=== PATIENT | male | born 2000 | race Hispanic/Latino ===

== ENCOUNTER 2022-12-04 10:17 | Emergency (ER) | payer OTHER ==
[~2022-12-04] VITALS: Ht 165.1 cm; Wt 70.9 kg
[2022-12-04 13:18] VITALS: BP 150/77; TEMP 98.6; O2SAT 98
== END 2022-12-04 13:35 | disposition home or self-care (01) ==
LOC: EDBD 10:17 → M ED 10:17
DX: S89.91XA Unspecified injury of right lower leg, initial encounter (principal); W50.0XXA Accidental hit or strike by another person, initial encounter; Y93.66 Activity, soccer

== ENCOUNTER → 2023-02-03 | Outpatient (CLI) | payer OTHER ==
[~2023-02-03] MED LIST: PROHANCE 279.3MG/ML 15ML VIAL ONE
== END ==
LOC: M PLAIMG 12:18
PROVIDERS: ATTEND Plastic Surgery Surgery of the Hand
DX: Q18.2 Other branchial cleft malformations (principal)

== ENCOUNTER 2023-03-30 20:37 | Emergency (ER) | payer OTHER ==
[~2023-03-30] VITALS: Ht 165.1 cm; Wt 65.1 kg
[2023-03-30 21:41] LABS: BASO % 0.3 % (0.0-1.0); EOS # 0.2 10^3/uL (0.0-0.5); EOS % 2.1 % (0.0-3.0); HEMATOCRIT 45.3 % (42.0-52.0); HEMOGLOBIN 15.9 g/dl (13.5-17.5); LYMPH # 3.1 10^3/uL (1.5-5.0); LYMPH % 30.1 % (24.0-44.0); MEAN CORPUSCULAR HEMOGLOBIN 31.5 pg (27.0-33.0); MEAN CORPUSCULAR HGB CONC 35.1 g/dl (32.0-36.5); MEAN CORPUSCULAR VOLUME 89.9 fl (80.0-96.0); MONO # 0.6 10^3/uL (0.0-0.8); NEUTROPHILS # 6.3 10^3/uL (1.5-8.5); NEUTROPHILS % 61.4 % (36.0-66.0); PLATELET COUNT, AUTOMATED 250 10^3/uL (150-450); RED BLOOD COUNT 5.04 10^6/uL (4.30-6.10); WHITE BLOOD COUNT 10.2 10^3/uL (4.0-10.0)
[2023-03-30 22:13] LABS: RSV AMPLIFICATION NEGATIVE (NEGATIVE)
[2023-03-30 22:14] LABS: BLOOD UREA NITROGEN 14 MG/DL (9-23); CALCIUM LEVEL 8.9 MG/DL (8.5-10.1); CARBON DIOXIDE LEVEL 29 MMOL/L (20-31); CHLORIDE LEVEL 106 MMOL/L (98-107); CK-MB VALUE MASS < 1.0 NG/ML (<3.6); CPK CREATINE PHOSPHOKINASE 88 U/L (46-171); CREATININE FOR GFR 0.87 MG/DL (0.70-1.30); GLUCOSE, FASTING 95 MG/DL (60-100); MB/CK RELATIVE INDEX 1.13 (< OR =4); POTASSIUM SERUM 3.8 MMOL/L (3.5-5.1); SODIUM LEVEL 140 MMOL/L (136-145)
[2023-03-31] MEDS ORDERED: KETOROLAC 30 MG/ML 1ML VIAL IV ONE (06:40)
[2023-03-31 07:36] LABS: CK-MB VALUE MASS < 1.0 NG/ML (<3.6)
[2023-03-31 07:39] LABS: CPK CREATINE PHOSPHOKINASE 62 U/L (46-171); MB/CK RELATIVE INDEX 1.61 (< OR =4)
[2023-03-31] MEDS ORDERED: IBUP-1022 PO (08:03)
[2023-03-31 08:18] VITALS: BP 108/65; TEMP 97.9; O2SAT 100
== END 2023-03-31 08:40 | disposition home or self-care (01) ==
LOC: M ED 20:37
DX: R07.9 Chest pain, unspecified (principal); I49.9 Cardiac arrhythmia, unspecified
CPT/HCPCS: 71045; 80048; 82550; 82553; 84484; 85025; 85379; 87631; 93005; 93041; 94760; 96374; 99285; J1885

== ENCOUNTER 2023-05-01 06:11 | Emergency (ER) | payer OTHER ==
[~2023-05-01] VITALS: Ht 165.1 cm; Wt 65.5 kg
[~2023-05-01 06:11] MED LIST changes: +IBUP-1022 PO; -PROHANCE 279.3MG/ML 15ML VIAL ONE
[2023-05-01 08:10] VITALS: BP 119/66; TEMP 97.6; O2SAT 100
== END 2023-05-01 08:12 | disposition home or self-care (01) ==
LOC: M ED 06:11
DX: S90.811A Abrasion, right foot, initial encounter (principal); S90.812A Abrasion, left foot, initial encounter; S00.93XA Contusion of unspecified part of head, initial encounter; S30.810A Abrasion of lower back and pelvis, initial encounter; W23.2XXA Caught, crushed, jammed or pinched between a moving and stationary object, initial encounter; Y92.009 Unspecified place in unspecified non-institutional (private) residence as the place of occurrence of the external cause; Y93.9 Activity, unspecified; Y99.9 Unspecified external cause status; Z53.9 Procedure and treatment not carried out, unspecified reason

== ENCOUNTER 2023-05-01 11:24 | Inpatient (IN) | payer OTHER ==
[~2023-05-01] VITALS: Ht 165.1 cm; Wt 65.5 kg
[2023-05-01] MEDS: CHARCOAL ACTIVATED LIQUID 25GM/120ML BTL PO ONE (11:45)
[2023-05-01] MEDS: LIDOCAINE 2% 5ML JELLY UROJET TOP ONE (11:45)
[2023-05-01 12:04] LABS: HEMATOCRIT 43.1 % (42.0-52.0); HEMOGLOBIN 15.3 g/dl (13.5-17.5); MEAN CORPUSCULAR HEMOGLOBIN 31.3 pg (27.0-33.0); MEAN CORPUSCULAR HGB CONC 35.5 g/dl (32.0-36.5); MEAN CORPUSCULAR VOLUME 88.1 fl (80.0-96.0); PLATELET COUNT, AUTOMATED 222 10^3/uL (150-450); RED BLOOD COUNT 4.89 10^6/uL (4.30-6.10); WHITE BLOOD COUNT 8.7 10^3/uL (4.0-10.0)
[2023-05-01] MEDS: NS 1,000 ML IV ONE (12:09)
[2023-05-01 12:30] LABS: ETHYL ALCOHOL (ETHANOL) 0.167 % (0.000-0.010)
[2023-05-01 12:32] LABS: ALBUMIN 3.8 G/DL (3.2-5.2); ALKALINE PHOSPHATASE 58 U/L (46-116); ALT/SGPT 19 U/L (7.0-40); AST/SGOT 20 U/L (<34); BILIRUBIN,DIRECT 0.1 MG/DL (<0.4); BILIRUBIN,TOTAL 0.3 MG/DL (0.3-1.2); BLOOD UREA NITROGEN 13 MG/DL (9-23); CALCIUM LEVEL 8.1 MG/DL (8.5-10.1); CARBON DIOXIDE LEVEL 24 MMOL/L (20-31); CHLORIDE LEVEL 108 MMOL/L (98-107); CREATININE FOR GFR 0.78 MG/DL (0.70-1.30); GLUCOSE, FASTING 114 MG/DL (60-100); POTASSIUM SERUM 3.7 MMOL/L (3.5-5.1); SALICYLATE LEVEL < 3.0 MG/DL (<30); SODIUM LEVEL 143 MMOL/L (136-145); TOTAL PROTEIN 6.7 G/DL (5.7-8.2)
[2023-05-01 12:33] LABS: THYROID STIMULATING HORMONE 1.002 uIU/ML (0.48-4.17)
[2023-05-01 12:45] LABS: AMPHETAMINES LEVEL URINE NEGATIVE (NEGATIVE); BARBITURATES URINE NEGATIVE (NEGATIVE); BENZODIAZEPINES URINE NEGATIVE (NEGATIVE); CANNABINOIDS URINE NEGATIVE (NEGATIVE); COCAINE METABOLITE URINE NEGATIVE (NEGATIVE); METHADONE URINE NEGATIVE (NEGATIVE); OPIATES URINE NEGATIVE (NEGATIVE); PHENCYCLIDINE URINE NEGATIVE (NEGATIVE)
[2023-05-01] MEDS ORDERED: ACETAMINOPHEN TAB 650MG DOSE (2X325MG) PO PRN (17:45)
[2023-05-01] MEDS ORDERED: traZODone 50 MG TAB PO PRN (17:45)
[2023-05-01] MEDS ORDERED: diphenhydrAMINE 25MG CAP PO PRN (17:45)
[2023-05-01] MEDS ORDERED: MOM 30ML SUSPENSION UDC PO PRN (17:45)
[2023-05-01] MEDS ORDERED: MAALOX 30 ML SUSP *UDC PO PRN (17:45)
[2023-05-01] MEDS ORDERED: HOME MED LIST COMPLETE! XX SCH (18:45)
[2023-05-01 20:20] VITALS: BP 138/87; TEMP 98.4; O2SAT 99
[2023-05-01] MEDS ORDERED: LORazepam 2 MG TAB PO PRN (21:55)
[2023-05-01] MEDS: THIAMINE 100 MG TAB PO SCH (22:26)
[2023-05-02 06:51] VITALS: BP 122/57; TEMP 98.1; O2SAT 99
[2023-05-02 08:00] VITALS: BP 122/57
[2023-05-02] MEDS: MULTIVITAMINS/MINERALS THERAP 1 TAB PO SCH (09:38)
[2023-05-02] MEDS: FOLIC ACID 1MG TAB PO SCH (09:38)
[2023-05-02 16:00] VITALS: BP 105/78
[2023-05-02 18:31] VITALS: BP 105/78; TEMP 98.1; O2SAT 98
[2023-05-02] MEDS: IBUPROFEN 400MG TAB PO PRN (21:09)
[2023-05-03 06:36] VITALS: BP 110/53; TEMP 97.8; O2SAT 99
== END 2023-05-03 13:19 | disposition home or self-care (01) | DRG 880 ==
LOC: M ED 11:24 → EDBD 11:24 → M ED INP 17:42 → M PSY 20:26
PROVIDERS: ADMIT Psychiatry & Neurology Psychiatry; ATTEND Student in an Organized Health Care Education/Training Program
DX: F41.9 Anxiety disorder, unspecified (principal); R45.851 Suicidal ideations; F43.21 Adjustment disorder with depressed mood; F10.90 Alcohol use, unspecified, uncomplicated; F17.200 Nicotine dependence, unspecified, uncomplicated; Z20.822 Contact with and (suspected) exposure to COVID-19; Z63.0 Problems in relationship with spouse or partner

== ENCOUNTER → 2023-10-03 | Outpatient (CLI) | payer OTHER ==
[~2023-10-03] MED LIST changes: +LIDOCAINE 1% MDV 20ML VIAL As Ordered ONE
[2023-10-03 09:10] VITALS: TEMP 97.3
[2023-10-03 10:44] VITALS: BP 124/82; O2SAT 99
== END ==
LOC: M IRPRO 09:01
PROVIDERS: ATTEND Otolaryngology
DX: D37.030 Neoplasm of uncertain behavior of the parotid salivary glands (principal)

== ENCOUNTER → 2023-10-12 | Outpatient (CLI) | payer OTHER ==
[~2023-10-12] MED LIST changes: -LIDOCAINE 1% MDV 20ML VIAL As Ordered ONE
== END ==
LOC: M RAD 13:53
PROVIDERS: ATTEND Otolaryngology
DX: D37.030 Neoplasm of uncertain behavior of the parotid salivary glands (principal)

== ENCOUNTER 2024-02-07 07:21 | Emergency (ER) | payer OTHER ==
[~2024-02-07] VITALS: Ht 165.1 cm; Wt 66.9 kg
[2024-02-07] MEDS: PROPARACAINE 0.5% OPHTH SOL 15ML OS ONE (10:02)
[2024-02-07] MEDS: FLUORESCEIN OPHTH 1MG STRIP OS ONE (10:02)
[2024-02-07 10:21] VITALS: BP 131/64; TEMP 97.8; O2SAT 97
== END 2024-02-07 10:23 | disposition home or self-care (01) ==
LOC: M ED 07:21
DX: H11.32 Conjunctival hemorrhage, left eye (principal)

== ENCOUNTER → 2024-04-06 | Outpatient (CLI) | payer OTHER | LOC: M RAD 14:08 | PROVIDERS: ATTEND Otolaryngology | DX: D11.0 Benign neoplasm of parotid gland (principal) ==